=== PATIENT | female | born 2000 | race Caucasian/White ===

== ENCOUNTER 2020-10-07 19:08 | Emergency (ER) | payer OTHER ==
--- OUTSIDE RECORDS SUMMARY | 2020-10-07 19:10 | XMS REPORT | Continuity of Care Document ---
:2000 Author Organization [facility] t Address [address] [place] [address] Care Team Providers Name Role Phone Román Tyler TRAN Attending Clinician Yana Patel Attending Clinician Problems Condition Condition Condition Status Onset Resolution Last Treating Co mments Source Name Details Category Date Date Treatment Clinician Date Anxiety Problem Resolve 2019-01-21 Mem oria (finding) d 01:28:57 l Anxiety [place] (finding) Resolved Problem 01/21/2019 [facility] Group Allergies, Adverse Reactions, Alerts Allergy Allergy Status Severity Reaction(s) Onset Inactive Treating Comm ents Source Name Type Date Date Clinician acetamin acetamin Active Memori a ophen-co ophen-co l deine delito Arana Social History Smoking Status Start Date Stop Date Source Social History [facility] Medications Ordered Filled Start Stop Current Ordering Indication Dosage Frequency Signature Comments Components Source Medication Medication Date Date Medication? Clinician (SIG) Name Name oxybutynin 2019- Yes 5 mg = 1 Mem oria 5 mg oral 8-21 tab, PO, l tablet 14:35: TID, PRN [place] 00 Other-See Comments, # 30 tab, 0 Refill(s), Pharmacy: [id number] Sertraline 2019-0 Yes PO, Daily, M emoria 8-20 0 l 19:26: Refill(s) Sumit Depo-Treater 2019-0 Yes 400 mg, Mem oria a 8-20 IM, 0 l 19:26: Refill(s) Sumit 00 Procedures This patient has no known procedures. 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
[2020-10-07 20:34] LABS: Urine Blood 3+ (Negative); Urine Glucose Negative (Negative); Urine Protein Negative (Negative); Urine Specific Gravity 1.015 (1.005-1.030); Urine pH 6.5 (5.0-7.0)
[2020-10-07 20:39] LABS: Urine Specific Gravity/Preg 1.015 (1.005-1.030)
[2020-10-07 20:55] LABS: Urine Bacteria <20 /HPF (<20)
[2020-10-07 20:56] LABS: Urine Mucus 1+ /HPF (NONE SEEN)
[2020-10-07 21:06] LABS: Absolute Lymphocytes (CBC) 2.7 K/uL (0.7-4.9); Basophils % 0.8 % (0-1.3); Hematocrit 37.9 % (36.0-45.0); Lymphocytes % 19.8 % (15.3-44.8); MPV 8.7 fL (7.6-11.3)
[2020-10-07] MEDS ORDERED: levoFLOXacin 500 MG TAB ONE (21:17)
[2020-10-07] MEDS ORDERED: NA CHLORIDE 0.9% 1,000 ML ONE (21:17)
[2020-10-07] MEDS ORDERED: PHENAZOPYRIDINE 100MG TAB PO ONE (21:17)
[2020-10-07] MEDS ORDERED: CEFTRIAXONE/SWI 1gm 1 GM/10 ML SYR ONE (21:17)
[2020-10-07 21:20] LABS: ALT/SGPT 20 U/L (12-78); AST/SGOT 15 U/L (15-37); Alkaline Phosphatase 61 U/L (45-117); BUN Blood Urea Nitrogen 10 mg/dL (7-18); Bicarbonate 29 mmol/L (21-32); Bilirubin Total 0.6 mg/dL (0.2-1.0); Glucose Level 98 mg/dL (74-106); Potassium 4.3 mmol/L (3.5-5.1); Protein, Total 7.5 g/dL (6.4-8.2); Sodium Level 142 mmol/L (136-145)
--- NOTE | 2020-10-07 21:20 | RAD REPORT ---
EXAM DESCRIPTION: CTAbdomen Pelvis W Contrast - 10/07/2020 9:13 pm CLINICAL HISTORY: Abdominal pain. Abd pain;Pain COMPARISON: No comparisons TECHNIQUE: Biphasic CT imaging of the abdomen and pelvis was performed with 100 ml non-ionic IV cont rast. All CT scans are performed using dose optimization technique as appropriate and may include automated exposure control or mA/KV adjustment according to patient size. FINDINGS: The lung bases are clear. The liver, spleen, pancreas, adrenal glands and kidneys are within normal limits. No bowel obstruction, free air, free fluid or abscess. The appendix is normal. No evidence of signi ficant lymphadenopathy. No suspicious bony findings. Mild enhancement of the urinary bladder wall. IMPRESSION: Mild enhancement of the urinary bladder wall may indicate cystitis. Otherwise, negative study.
--- NOTE | 2020-10-07 21:40 | EDPHYS ---
Physician Documentation [facility] Name: Marissa Sosa Age: 20 yrs Sex: Female : 2000 Arrival Date: 10/07/2020 Time: 19:13 Bed 8 Private MD: ED Physician Dakota Reza HPI: 10/07 20:45 This 20 yrs old Female presents to ER via Ambulatory with complaints of Blood moses in urine. 20:45 The patient presents with pelvic pain, the pain is described as moderate, urinary moses symptoms, dysuria, frequency, hematuria, urgency. Onset: The symptoms/episode began/occurred 1 day(s) ago. Modifying factors: The symptoms are alleviated by nothing, the symptoms are aggravated by nothing. Associated signs and symptoms: The patient has no apparent associated signs or symptoms. Severity of symptoms: At their worst the symptoms were mild, moderate, in the emergency department the symptoms are unchanged. The patient is sexually active, reportedly has a single partner. The patient has experienced a previous episode, last year. 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 Flu vaccine is not up to date. - Social history:: Smoking status: Patient denies any tobacco usage or history of. - Family history:: not pertinent. ROS: 20:45 Constitutional: Negative for fever, chills, and weight loss, Eyes: Negative for injury, moses pain, redness, and discharge, ENT: Negative for injury, pain, and discharge, Neck: Negative for injury, pain, and swelling, Cardiovascular: Negative for chest pain, palpitations, and edema, Respiratory: Negative for shortness of breath, cough, wheezing, and pleuritic chest pain, Back: Negative for injury and pain, MS/Extremity: Negative for injury and deformity, Skin: Negative for injury, rash, and discoloration, Neuro: Negative for headache, weakness, numbness, tingling, and seizure, Psych: Negative for depression, anxiety, suicide ideation, homicidal ideation, and hallucinations, Allergy/Immunology: Negative for hives, rash, and allergies, Endocrine: Negative for neck swelling, polydipsia, polyuria, polyphagia, and marked weight changes, Hematologic/Lymphatic: Negative for swollen nodes, abnormal bleeding, and unusual bruising. 20:45 Abdomen/GI: Positive for abdominal pain, of the suprapubic area. Exam: 20:45 Constitutional: This is a well developed, well nourished patient who is awake, alert, moses and in no acute distress. Head/Face: Normocephalic, atraumatic. Eyes: Pupils equal round and reactive to light, extra-ocular motions intact. Lids and lashes normal. Conjunctiva and sclera are non-icteric and not injected. Cornea within normal limits. Periorbital areas with no swelling, redness, or edema. ENT: Nares patent. No nasal discharge, no septal abnormalities noted. Tympanic membranes are normal and external auditory canals are clear. Oropharynx with no redness, swelling, or masses, exudates, or evidence of obstruction, uvula midline. Mucous membranes moist. Neck: Trachea midline, no thyromegaly or masses palpated, and no cervical lymphadenopathy. Supple, full range of motion without nuchal rigidity, or vertebral point tenderness. No Meningismus. Chest/axilla: Normal chest wall appearance and motion. Nontender with no deformity. No lesions are appreciated. Cardiovascular: Regular rate and rhythm with a normal S1 and S2. No gallops, murmurs, or rubs. Normal PMI, no JVD. No pulse deficits. Respiratory: Lungs have equal breath sounds bilaterally, clear to auscultation and percussion. No rales, rhonchi or wheezes noted. No increased work of breathing, no retractions or nasal flaring. Back: No spinal tenderness. No costovertebral tenderness. Full range of motion. Skin: Warm, dry with normal turgor. Normal color with no rashes, no lesions, and no evidence of cellulitis. MS/ Extremity: Pulses equal, no cyanosis. Neurovascular intact. Full, normal range of motion. Neuro: Awake and alert, GCS 15, oriented to person, place, time, and situation. Cranial nerves II-XII grossly intact. Motor strength 5/5 in all extremities. Sensory grossly intact. Cerebellar exam normal. Normal gait. 20:45 Abdomen/GI: Inspection: abdomen appears normal, Bowel sounds: normal, Palpation: mild abdominal tenderness, moderate abdominal tenderness, in the suprapubic area, Liver: no appreciated palpable abnormalities, Hernia: not appreciated. Vital Signs: 19:38 BP 126 / 74; Pulse 86; Resp 16 S; Temp 97.5(TE); Pulse Ox 100% on R/A; Weight 53.52 kg ca1 (R); Height 5 ft. 0 in. (152.40 cm) (R); Pain 7/10; 22:00 BP 120 / 68; Pulse 80; Resp 18; Temp 98; Pulse Ox 99% ; ea 19:38 Body Mass Index 23.05 (53.52 kg, 152.40 cm) ca1 MDM: 20:37 Patient medically screened. moses 20:49 Differential diagnosis: kidney stone, nonspecific abdominal pain, urinary tract moses infection. Data reviewed: vital signs, nurses notes, lab test result(s), radiologic studies, CT scan. Data interpreted: teletypesetter monitor: rate is 86 beats/min, rhythm is regular, Pulse oximetry: on room air is 100 %. Counseling: I had a detailed discussion with the patient and/or guardian regarding: the historical points, exam findings, and any diagnostic results supporting the discharge/admit diagnosis, lab results, radiology results, the need for outpatient follow up, for definitive care, a family practitioner, a urologist. 10/07 20:34 Order name: Urine Dipstick-Ancillary; Complete Time: 20:42 EDMS 10/07 20:34 Order name: Urine --Ancillary (enter results) 10/07 20:35 Order name: Urine Microscopic Only; Complete Time: 21:38 10/07 20:35 Order name: Urine --Ancillary; Complete Time: 20:42 EDMS 10/07 20:45 Order name: CBC with Diff [facility] 10/07 20:45 Order name: Comprehensive Metabolic Panel; Complete Time: 21:38 [facility] 10/07 20:45 Order name: CT Abd/Pelvis - IV Contrast Only; Complete Time: 21:38 [facility] 10/07 20:45 Order name: Urine Culture [facility] 10/07 20:46 Order name: CBC with Automated Diff; Complete Time: 21:38 EDMS Administered Medications: 21:03 Drug: Rocephin (cefTRIAXone) 1 grams Route: IV; Rate: per protocol; Site: right ea antecubital; 22:10 Follow up: Response: No adverse reaction; IV Status: Completed infusion ea 21:03 Drug: LevOfloxacin 500 mg Route: PO; ea 22: Follow up: Response: No adverse reaction ea 21:03 Drug: Pyridium (phenazopyridine) 200 mg Route: PO; ea 22:01 Follow up: Response: No adverse reaction ea 21:04 Drug: NS 0.9% 1000 ml Route: IV; Rate: 1 bolus; Site: right antecubital; ea 22:11 Follow up: Response: No adverse reaction; IV Status: Completed infusion ea Disposition: 10/07/20 21:39 Discharged to Home. Impression: Hematuria, Urinary tract infection, site not specified, Cystitis, unspecified, Cystitis, unspecified with hematuria. - Condition is Stable. - Discharge Instructions: Dysuria, Hematuria, Adult, Urinary Tract Infection, Adult, Urinary Tract Infection, Adult, [id number]. - Prescriptions for Levaquin 250 mg Oral Tablet - take 1 tablet by ORAL route once daily for 7 days; 7 tablet. Pyridium 200 mg Oral Tablet - take 1 tablet by ORAL route every 8 hours for 3 days; 9 tablet. Bactrim DS 800- 160 mg Oral Tablet - take 1 tablet by ORAL route every 12 hours for 3 days; 6 tablet. - Medication Reconciliation Form, Thank You Letter, Antibiotic Education, Prescription Opioid Use form. - Follow up: Private Physician; When: 2 - 3 days; Reason: Recheck today's complaints, Continuance of care, Re-evaluation by your physician. Follow up: Jayme Mei; When: 2 - 3 days; Reason: Recheck today's complaints, Re-evaluation by your physician. - Problem is new. - Symptoms have improved. Signatures: Dispatcher [employer] Dakota Carranza MD MD cha Antunez, Elena, RN RN ea Acob, Cheryl, RN RN ca1 Corrections: (The following items were deleted from the chart) 22:12 21:39 10/07/2020 21:39 Discharged to Home. Impression: Hematuria; Urinary tract ea infection, site not specified; Cystitis, unspecified; Cystitis, unspecified with hematuria. Condition is Stable. Discharge Instructions: Dysuria, Hematuria, Adult, Urinary Tract Infection, Adult, Urinary Tract Infection, Adult, [id number]. Prescriptions for Levaquin 250 mg Oral Tablet - take 1 tablet by ORAL route once daily for 7 days; 7 tablet, Pyridium 200 mg Oral Tablet - take 1 tablet by ORAL route every 8 hours for 3 days; 9 tablet. and Forms are Medication Reconciliation Form, Thank You Letter, Antibiotic Education, Prescription Opioid Use. Follow up: Private Physician; When: 2 - 3 days; Reason: Recheck today's complaints, Continuance of care, Re-evaluation by your physician. Follow up: Jayme Mei; When: 2 - 3 days; Reason: Recheck today's complaints, Re-evaluation by your physician. Problem is new. Symptoms have improved. moses
--- NOTE | 2020-10-07 21:40 | ER ---
Nurse's Notes [facility] Name: Marissa Sosa Age: 20 yrs Sex: Female : 2000 Arrival Date: 10/07/2020 Time: 19:13 Bed 8 Private MD: Diagnosis: Hematuria;Urinary tract infection, site not specified;Cystitis, unspecified;Cystitis, unspecified with hematuria Presentation: 10/07 19:38 Chief complaint: Patient states: blood in the urine since this morning, reports ca1 suprapubic pain, burning with urination, urinary urgency and frequency. Coronavirus screen: Client denies travel out of the [place] in the last 14 days. At this time, the client does not indicate any symptoms associated with coronavirus-19. Ebola Screen: Patient negative for fever greater than or equal to 101.5 degrees Fahrenheit, and additional compatible Ebola Virus Disease symptoms Patient denies exposure to infectious person. Patient denies travel to an Ebola-affected area in the 21 days before illness onset. No symptoms or risks identified at this time. Initial Sepsis Screen: Does the patient meet any 2 criteria? Yes Does the patient have a suspected source of infection? No. Patient's initial sepsis screen is negative. Risk Assessment: Do you want to hurt yourself or someone else? Patient reports no desire to harm self or others. Onset of symptoms was October 07, 2020. 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 Flu vaccine is not up to date. - Social history:: Smoking status: Patient denies any tobacco usage or history of. - Family history:: not pertinent. Screenin:04 Abuse screen: Denies threats or abuse. Nutritional screening: No deficits noted. ea Tuberculosis screening: No symptoms or risk factors identified. Fall Risk IV access (20 points). Assessment: 21:05 General: Appears in no apparent distress. Behavior is calm, cooperative, appropriate ea for age. Pain: Denies pain. Neuro: Level of Consciousness is awake, alert, obeys commands, Oriented to person, place, time. Respiratory: Airway is patent Respiratory effort is even, unlabored, Respiratory pattern is regular, symmetrical. : Reports burning with urination. Derm: Skin is pink, warm \T\ dry. 22:09 Reassessment: Patient and/or family updated on plan of care and expected duration. Pain ea level reassessed. Patient is alert, oriented x 3, equal unlabored respirations, skin warm/dry/pink. Discharge instruction given to patient verbalized the understanding of instruction, pt left ED ambulatory accompanied by significant other. Vital Signs: 19:38 BP 126 / 74; Pulse 86; Resp 16 S; Temp 97.5(TE); Pulse Ox 100% on R/A; Weight 53.52 kg ca1 (R); Height 5 ft. 0 in. (152.40 cm) (R); Pain 7/10; 22:00 BP 120 / 68; Pulse 80; Resp 18; Temp 98; Pulse Ox 99% ; ea 19:38 Body Mass Index 23.05 (53.52 kg, 152.40 cm) ca1 ED Course: 19:13 Patient arrived in ED. am4 19:39 Triage completed. ca1 19:39 Arm band placed on right wrist. ca1 20:36 Dakota Reza MD is Attending Physician. moses 20:47 Christiane Garland, RN is Primary Nurse. ea 21:04 Patient has correct armband on for positive identification. Bed in low position. Call ea light in reach. Side rails up X2. 21:04 Inserted saline lock: 20 gauge in right antecubital area, using aseptic technique. ea 21:12 CT Abd/Pelvis - IV Contrast Only In Process Unspecified. EDMS 21:39 Jayme Mei MD is Referral Physician. moses 22:10 No provider procedures requiring assistance completed. IV discontinued, intact, ea bleeding controlled, No redness/swelling at site. Pressure dressing applied. Administered Medications: 21:03 Drug: Rocephin (cefTRIAXone) 1 grams Route: IV; Rate: per protocol; Site: right ea antecubital; 22:10 Follow up: Response: No adverse reaction; IV Status: Completed infusion ea 21:03 Drug: LevOfloxacin 500 mg Route: PO; ea 22:01 Follow up: Response: No adverse reaction ea 21:03 Drug: Pyridium (phenazopyridine) 200 mg Route: PO; ea 22:01 Follow up: Response: No adverse reaction ea 21:04 Drug: NS 0.9% 1000 ml Route: IV; Rate: 1 bolus; Site: right antecubital; ea 22:11 Follow up: Response: No adverse reaction; IV Status: Completed infusion ea Outcome: 21:39 Discharge ordered by . moses 22:10 Discharged to home ambulatory, with family. ea 22:10 Condition: stable 22:10 Discharge instructions given to patient, Instructed on discharge instructions, follow up and referral plans. medication usage, Demonstrated understanding of instructions, follow-up care, medications, Prescriptions given X 3. 22:12 Patient left the ED. ea Addendum: 10/11/2020 10:10 Addendum: Culture Results: Positive urine culture. Bacteria is resistant to, has a a5 intermediate sensitivity, or is not tested against prescribed antibiotics. Report given to SUE for further evaluation and then to consultant in ergonomics and safety for follow up with patient. Phone call Attempt #1 left voice mail. 13:42 Addendum: Culture Results: Positive urine culture. Bacteria is resistant to, has a a5 intermediate sensitivity, or is not tested against prescribed antibiotics. Report given to SUE for further evaluation and then to consultant in ergonomics and safety for follow up with patient. Prescription called-in to pharmacy of choice. to [facility] in [place], [place]. Called in Macrobid 100 mg PO BID x 7 days per CINTIA Kolb, pt also instructed to stop Bactrim, pt reports she already finished course of Levaquin. Signatures: Dispatcher [employer] EDAK Dakota Reza MD MD cha Calderon, Audri, RN RN [id number] Christiane Garland RN Jessica Juarez ea RN RN Amanda Reid
[2020-10-07 23:55] VITALS: BP 120/68; TEMP 98; O2SAT 99
== END 2020-10-07 22:12 | disposition home or self-care (01) ==
LOC: ER 19:08
DX: N30.91 Cystitis, unspecified with hematuria (principal); Z88.5 Allergy status to narcotic agent
CPT/HCPCS: 87088; 85025; 87086; 36415; 81025; 80053; 74177; Q9967; J0696; J7030; 81003; 81015; 87077; 87186; 96365; 99284